=== PATIENT | female | born 1995 | race Caucasian/White ===

== ENCOUNTER 2016-04-23 23:36 | Emergency (ER) | payer SELFPAY ==
--- NOTE | 2016-04-24 00:08 | ED NURSING NOTES ---
Clinical Report - Nurses [facility] [address] [place] [address] 04/23/2016 23:39 Patient: RACHEL DÍAZ TRIAGE Triage time 23:51 Apr 23 2016. Chief Complaint: SWELLING OF JAW / FACE. --23:53 Saud Elias R.N. 23:51 04/23/16. BP: 108/91. HR: 134. RR: 18. O2 saturation: 97%. Temp: 98.3 F. Pain level now 0/10. --23:53 Saud Elias R.N. Weight: 63.5 kg stated. Height/Length: 66 inches Per Patient. BMI: 22.6. --23:51 Saud Elias R.N. Medications None. --04:16 Saud Elias R.N. Allergies No Known Drug Allergy. --04:16 Saud Elias R.N. History Arrived by private vehicle. Historian: patient. This started yesterday. No fever. 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 SOCIAL HX: Light tobacco smoker. History of IV drug use: heroin. No alcohol use. --23:53 Saud Elias R.N. PHYSICAL ASSESSMENT 23:56 04/23/16. GENERAL / NEURO / PSYCH: Alert. Oriented X 4. Appears in no acute distress. HEENT: Pupils equal, round and reactive to light. Dental tenderness of multiple teeth. Dental decay. RESPIRATORY: Respirations not labored. SKIN: Skin is warm and dry. --23:56 Saud Elias R.N. NURSING PROGRESS NOTES 00:12 04/24/2016 Amoxicillin PO 500 mg given. Allergies verified and confirmed 5 rights. --00:13 Saud Elias R.N. DISPOSITION / DISCHARGE 00:15 04/24/16. BP: 113/72. HR: 120. RR: 18. O2 saturation: 100%. Temp: 98.5 F. Pain level now 0/10. --00:16 Saud Elias R.N. Departure time: 00:18 Apr 24 2016. --00:18 Saud Elias R.N. Reviewed medication(s). Treatments reviewed. Patient verbalized understanding. Written instructions provided in Polish. The patient was discharged by the physician. She was discharged home. ( Pt ambulated on discharge, verbalized understanding of discharge instructions and follow up care as well as medication admin.). --00:24 Saud Elias R.N. Locked/Released at 04/24/2016 4:17 by Saud Elias R.N.
--- NOTE | 2016-04-24 00:08 | ED CLINICAL REPORT ---
Clinical Report - Physicians/Mid Levels [facility] [address] [place] [address] 04/23/2016 23:39 Patient: RACHEL DÍAZ Time Seen: 23:55. Arrived- By private vehicle. Historian- patient. HISTORY OF PRESENT ILLNESS Chief Complaint: DENTAL PAIN. This started several days ago and is still present. Pain described as moderate. No sore throat, mouth sores, nasal discharge or congestion or ear pain. She has had toothache, swelling of the face and facial pain. Similar symptoms previously: Recent medical care: Not recently seen/assessed. REVIEW OF SYSTEMS No fever, eye discomfort, cough, difficulty breathing or chest pain. No nausea, diarrhea, abdominal pain, difficulty with urination or headache. No fainting episodes, joint pain, skin rash, enlarged lymph nodes or vomiting. Denies current . All systems otherwise negative, except as recorded above. PAST HISTORY Problems: Dysfunctional Uterine Bleeding. Immunizations. Additional Surgeries: no known surgeries. Medications: None. Allergies: No Known Drug Allergy. SOCIAL HISTORY Smoker- current status unknown. History of drug use: heroin. No alcohol use. ADDITIONAL NOTES The nursing notes have been reviewed. PHYSICAL EXAM Vital Signs: 04/23/2016 23:51 BP: 108/91. HR: 134. RR: 18. O2 saturation: 97%. Temp: 98.3 F. Have been reviewed. Appearance: Alert. No acute distress. Head: Moderate swelling of the right maxilla. No facial erythema. Eyes: Pupils equal, round and reactive to light. Conjunctivae and eyelids normal. ENT: Nose normal. Pharynx normal. Lips normal. No trismus present. Uvula midline. (R maxillary gingiva are erythematous, with a fluctuant, draining abscess in the buccal pocket. Purulent drainage is easily expressible from the area.). Neck: Normal inspection. Trachea midline. No adenopathy. Neck supple. CVS: Normal heart rate and rhythm. Heart sounds normal. Pulses normal. Respiratory: No respiratory distress. Breath sounds normal. Skin: Normal skin color. No rash. Normal skin turgor. Extremities: Extremities exhibit normal ROM. Extremities nontender. Neuro: Oriented X 3. No motor deficit. No sensory deficit. LABS, X-RAYS, AND EKG Pulse Oximetry: 04/23/2016 23:51 O2 saturation: 97%. (FIO2 - room air). Interpretation: normal. PROGRESS AND PROCEDURES Course of Care: Pt had a freely draining dental abscess, and was started on amoxicillin. We did discuss hot packing with tea bags, and the importance of following up with a dentist as soon as possible. Patient counseled in person regarding the patient's stable condition, test results, diagnosis and need for follow-up. Concerns were addressed. Old medical records reviewed. Disposition: Discharged. Condition: stable. CLINICAL IMPRESSION Periapical dental abscess with sinus tract. INSTRUCTIONS Drink plenty of fluids. Warnings: GENERAL WARNINGS: Return or contact your physician immediately if your condition worsens or changes unexpectedly, if not improving as expected, or if other problems arise. Prescription Medications: Amoxicillin 500 mg tablets: take 1 orally every 8 hours for 10 days. No refills. Follow-up: Follow up with a dentist. Call for the next available appointment. Understanding of the discharge instructions verbalized by patient. (Electronically signed by Shannan Ng MD 04/30/2016 19:28)
--- NOTE | 2016-04-24 00:08 | ED ORDER SUMMARY ---
..... Patient: RACHEL DÍAZ OrderSheet [facility] VisitID: [id number] [place] [address] 20y, F Registration Date/Time: 04/23/2016 ORDER SHEET Weight: 63.5 kg (stated) Allergies: No Known Drug Allergy GENERAL ORDERS: MEDICATION ORDERS: Amoxicillin PO 500 mg (NOW) (00:06 04/24/2016 Jodi MEJIA) (0:13 Lisa R.NSean) IV FLUIDS: ORDER SHEET NOTES: [Electronically signed by Saud Elias R.N. (04:17 04/24/2016)] [Electronically signed by Shannan Ng MD (19:28 04/30/2016)] [Electronically locked/signed by Saud Elias R.N. (04:17 04/24/2016)]
--- NOTE | 2016-04-24 00:08 | ED ORDER SUMMARY ---
..... Patient: RACHEL DÍAZ OrderSheet [facility] VisitID: [id number] [place] [address] 20y, F Registration Date/Time: 04/23/2016 ORDER SHEET Weight: 63.5 kg (stated) Allergies: No Known Drug Allergy GENERAL ORDERS: MEDICATION ORDERS: Amoxicillin PO 500 mg (NOW) (00:06 04/24/2016 Jodi MEJIA) (0:13 Lisa R.NSean) IV FLUIDS: ORDER SHEET NOTES: [Electronically signed by Saud Elias R.N. (04:17 04/24/2016)] [Electronically signed by Shannan Ng MD (19:28 04/30/2016)] [Electronically locked/signed by Saud Elias R.N. (04:17 04/24/2016)]
--- NOTE | 2016-04-24 00:08 | ED CLINICAL REPORT ---
Clinical Report - Physicians/Mid Levels [facility] [address] [place] [address] 04/23/2016 23:39 Patient: RACHEL DÍAZ Time Seen: 23:55. Arrived- By private vehicle. Historian- patient. HISTORY OF PRESENT ILLNESS Chief Complaint: DENTAL PAIN. This started several days ago and is still present. Pain described as moderate. No sore throat, mouth sores, nasal discharge or congestion or ear pain. She has had toothache, swelling of the face and facial pain. Similar symptoms previously: Recent medical care: Not recently seen/assessed. REVIEW OF SYSTEMS No fever, eye discomfort, cough, difficulty breathing or chest pain. No nausea, diarrhea, abdominal pain, difficulty with urination or headache. No fainting episodes, joint pain, skin rash, enlarged lymph nodes or vomiting. Denies current . All systems otherwise negative, except as recorded above. PAST HISTORY Problems: Dysfunctional Uterine Bleeding. Immunizations. Additional Surgeries: no known surgeries. Medications: None. Allergies: No Known Drug Allergy. SOCIAL HISTORY Smoker- current status unknown. History of drug use: heroin. No alcohol use. ADDITIONAL NOTES The nursing notes have been reviewed. PHYSICAL EXAM Vital Signs: 04/23/2016 23:51 BP: 108/91. HR: 134. RR: 18. O2 saturation: 97%. Temp: 98.3 F. Have been reviewed. Appearance: Alert. No acute distress. Head: Moderate swelling of the right maxilla. No facial erythema. Eyes: Pupils equal, round and reactive to light. Conjunctivae and eyelids normal. ENT: Nose normal. Pharynx normal. Lips normal. No trismus present. Uvula midline. (R maxillary gingiva are erythematous, with a fluctuant, draining abscess in the buccal pocket. Purulent drainage is easily expressible from the area.). Neck: Normal inspection. Trachea midline. No adenopathy. Neck supple. CVS: Normal heart rate and rhythm. Heart sounds normal. Pulses normal. Respiratory: No respiratory distress. Breath sounds normal. Skin: Normal skin color. No rash. Normal skin turgor. Extremities: Extremities exhibit normal ROM. Extremities nontender. Neuro: Oriented X 3. No motor deficit. No sensory deficit. LABS, X-RAYS, AND EKG Pulse Oximetry: 04/23/2016 23:51 O2 saturation: 97%. (FIO2 - room air). Interpretation: normal. PROGRESS AND PROCEDURES Course of Care: Pt had a freely draining dental abscess, and was started on amoxicillin. We did discuss hot packing with tea bags, and the importance of following up with a dentist as soon as possible. Patient counseled in person regarding the patient's stable condition, test results, diagnosis and need for follow-up. Concerns were addressed. Old medical records reviewed. Disposition: Discharged. Condition: stable. CLINICAL IMPRESSION Periapical dental abscess with sinus tract. INSTRUCTIONS Drink plenty of fluids. Warnings: GENERAL WARNINGS: Return or contact your physician immediately if your condition worsens or changes unexpectedly, if not improving as expected, or if other problems arise. Prescription Medications: Amoxicillin 500 mg tablets: take 1 orally every 8 hours for 10 days. No refills. Follow-up: Follow up with a dentist. Call for the next available appointment. Understanding of the discharge instructions verbalized by patient. (Electronically signed by Shannan Ng MD 04/30/2016 19:28)
--- NOTE | 2016-04-24 00:08 | ED NURSING NOTES ---
Clinical Report - Nurses [facility] [address] [place] [address] 04/23/2016 23:39 Patient: RACHEL DÍAZ TRIAGE Triage time 23:51 Apr 23 2016. Chief Complaint: SWELLING OF JAW / FACE. --23:53 Saud Elias R.N. 23:51 04/23/16. BP: 108/91. HR: 134. RR: 18. O2 saturation: 97%. Temp: 98.3 F. Pain level now 0/10. --23:53 Saud Elias R.N. Weight: 63.5 kg stated. Height/Length: 66 inches Per Patient. BMI: 22.6. --23:51 Saud Elias R.N. Medications None. --04:16 Saud Elias R.N. Allergies No Known Drug Allergy. --04:16 Saud Elias R.N. History Arrived by private vehicle. Historian: patient. This started yesterday. No fever. 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 SOCIAL HX: Light tobacco smoker. History of IV drug use: heroin. No alcohol use. --23:53 Saud Elias R.N. PHYSICAL ASSESSMENT 23:56 04/23/16. GENERAL / NEURO / PSYCH: Alert. Oriented X 4. Appears in no acute distress. HEENT: Pupils equal, round and reactive to light. Dental tenderness of multiple teeth. Dental decay. RESPIRATORY: Respirations not labored. SKIN: Skin is warm and dry. --23:56 Saud Elias R.N. NURSING PROGRESS NOTES 00:12 04/24/2016 Amoxicillin PO 500 mg given. Allergies verified and confirmed 5 rights. --00:13 Saud Elias R.N. DISPOSITION / DISCHARGE 00:15 04/24/16. BP: 113/72. HR: 120. RR: 18. O2 saturation: 100%. Temp: 98.5 F. Pain level now 0/10. --00:16 Saud Elias R.N. Departure time: 00:18 Apr 24 2016. --00:18 Saud Elias R.N. Reviewed medication(s). Treatments reviewed. Patient verbalized understanding. Written instructions provided in Uzbek. The patient was discharged by the physician. She was discharged home. ( Pt ambulated on discharge, verbalized understanding of discharge instructions and follow up care as well as medication admin.). --00:24 Saud Elias R.N. Locked/Released at 04/24/2016 4:17 by Saud Elias R.N.
--- NOTE | 2016-04-30 19:28 | ED MAR SUMMARY ---
..... Medication Administration Record [facility] [address] [place] [address] Patient: RACHEL DÍAZ Visit ID: [id number] 20y, F Weight: 63.5 kg Height/Length: 66 in BMI: 22.6 ALLERGIES: No Known Drug Allergy Given 00:12 04/24/2016 Saud Elias R.N. Medication Administered: AMOXICILLIN [PO], Dose: 500 mg PO. Medication Ordered: Amoxicillin PO 500 mg (NOW).
--- NOTE | 2016-04-30 19:28 | ED DISCHARGE INSTRUCTIONS ---
Patient: RACHEL DÍAZ General Instructions [facility] VisitID: [id number] [place] [address] 20y, F Registration Date/Time: 04/23/2016 Periapical dental abscess with sinus tract. INSTRUCTIONS Drink plenty of fluids. Warnings: GENERAL WARNINGS: Return or contact your physician immediately if your condition worsens or changes unexpectedly, if not improving as expected, or if other problems arise. Prescription Medications: Amoxicillin 500 mg tablets: take 1 orally every 8 hours for 10 days. No refills. Follow-up: Follow up with a dentist. Call for the next available appointment. Understanding of the discharge instructions verbalized by patient. ADDITIONAL INFORMATION Dental Abscess A dental abscess is an infection of the tooth socket. It often starts with a crack or cavity in the tooth. A pocket of pus forms between the tooth and the bone. The infection causes pain and swelling of the gum, cheek or jaw. The pain is often made worse by drinking hot or cold fluids, or biting on hard foods. Pain may be felt in the facial sinus or in the ear. A severe infection can interfere with swallowing and breathing. In the emergency department or clinic, you will be started on an antibiotic. However, final treatment requires drainage of the pus. This can be done by removing the tooth or performing a root canal. A root canal is done by an oral surgeon and involves drilling an opening in the tooth to drain the pus. After the infection has healed, a crown is placed over the tooth. Home care The following guidelines will help you care for your abscess at home: Avoid hot and cold foods and liquids since your tooth may be sensitive to temperature changes. If your tooth is chipped or cracked, or if there is a large open cavity, applyoil of cloves(available svgo-qau-vjyfkpt in drug stores) directly to the tooth to reduce pain. Some pharmacies carry an cbqq-lmv-nzdfayt "toothache kit". This contains oil of cloves and a paste, which can be applied over the exposed tooth to decrease sensitivity. Apply an ice pack (ice cubes in a plastic bag, wrapped in a towel) over the injured area for 20 minutes every 12 hours the first day for pain relief. Continue this 34 times a day until the pain and swelling goes away. You may use acetaminophen or ibuprofen to control pain, unless another medicine was prescribed. If you have chronic liver or kidney disease or ever had a stomach ulcer or GI bleeding, talk with your doctor before using these medicines. An antibiotic will be prescribed. Take it as directed until completed, even if you are feeling better sooner. Follow-up care Follow up as directed with a dentist or oral surgeon. Even though your pain may improve with the treatment given today, only a dentist or oral surgeon can provide full treatment for this problem. When to seek medical care Get prompt medical attention or contact your doctor if any of the following occur: Your face or eyelid becomes swollen or red Pain worsens or spreads to the neck Fever over 100.4F (38.0C) Unusual drowsiness; headache or stiff neck; weakness, or fainting Pus drains from the gum or tooth Difficulty talking, swallowing or breathing Unable to open your mouth wide You have been given the following additional information: Tooth Abscess (Electronically signed by Shannan Ng MD 04/30/2016 19:28)
--- NOTE | 2016-04-30 19:28 | ED MED RECONCILIATION SUMMARY ---
Patient: RACHEL DÍAZ Medication Reconciliation Report [facility] VisitID: [id number] [place] [address] 20y, F Registration Date/Time: 04/23/2016 Weight: 63.5 kg Height/Length: 66 in. BMI: 22.6 ALLERGIES: No Known Drug Allergy The patient's Home Medications are listed below: NONE. The source(s) of the original Home Medication information: Not obtained. The following Medications were given to the patient in the Emergency Department: Amoxicillin [PO] PO 500 mg, administered: 04/24/2016 12:12:00 AM The following Medications were prescribed to the patient: Amoxicillin 500 mg tablets: take 1 orally every 8 hours for 10 days. No refills. -- Shannan Ng MD
--- NOTE | 2016-04-30 19:28 | ED MED RECONCILIATION SUMMARY ---
Patient: RACHEL DÍAZ Medication Reconciliation Report [facility] VisitID: [id number] [place] [address] 20y, F Registration Date/Time: 04/23/2016 Weight: 63.5 kg Height/Length: 66 in. BMI: 22.6 ALLERGIES: No Known Drug Allergy The patient's Home Medications are listed below: NONE. The source(s) of the original Home Medication information: Not obtained. The following Medications were given to the patient in the Emergency Department: Amoxicillin [PO] PO 500 mg, administered: 04/24/2016 12:12:00 AM The following Medications were prescribed to the patient: Amoxicillin 500 mg tablets: take 1 orally every 8 hours for 10 days. No refills. -- Shannan Ng MD
--- NOTE | 2016-04-30 19:28 | ED DISCHARGE INSTRUCTIONS ---
Patient: RACHEL DÍAZ General Instructions [facility] VisitID: [id number] [place] [address] 20y, F Registration Date/Time: 04/23/2016 Periapical dental abscess with sinus tract. INSTRUCTIONS Drink plenty of fluids. Warnings: GENERAL WARNINGS: Return or contact your physician immediately if your condition worsens or changes unexpectedly, if not improving as expected, or if other problems arise. Prescription Medications: Amoxicillin 500 mg tablets: take 1 orally every 8 hours for 10 days. No refills. Follow-up: Follow up with a dentist. Call for the next available appointment. Understanding of the discharge instructions verbalized by patient. ADDITIONAL INFORMATION Dental Abscess A dental abscess is an infection of the tooth socket. It often starts with a crack or cavity in the tooth. A pocket of pus forms between the tooth and the bone. The infection causes pain and swelling of the gum, cheek or jaw. The pain is often made worse by drinking hot or cold fluids, or biting on hard foods. Pain may be felt in the facial sinus or in the ear. A severe infection can interfere with swallowing and breathing. In the emergency department or clinic, you will be started on an antibiotic. However, final treatment requires drainage of the pus. This can be done by removing the tooth or performing a root canal. A root canal is done by an oral surgeon and involves drilling an opening in the tooth to drain the pus. After the infection has healed, a crown is placed over the tooth. Home care The following guidelines will help you care for your abscess at home: Avoid hot and cold foods and liquids since your tooth may be sensitive to temperature changes. If your tooth is chipped or cracked, or if there is a large open cavity, applyoil of cloves(available rhwk-xyg-tiblpdt in drug stores) directly to the tooth to reduce pain. Some pharmacies carry an uefj-zkc-lvyigyj "toothache kit". This contains oil of cloves and a paste, which can be applied over the exposed tooth to decrease sensitivity. Apply an ice pack (ice cubes in a plastic bag, wrapped in a towel) over the injured area for 20 minutes every 12 hours the first day for pain relief. Continue this 34 times a day until the pain and swelling goes away. You may use acetaminophen or ibuprofen to control pain, unless another medicine was prescribed. If you have chronic liver or kidney disease or ever had a stomach ulcer or GI bleeding, talk with your doctor before using these medicines. An antibiotic will be prescribed. Take it as directed until completed, even if you are feeling better sooner. Follow-up care Follow up as directed with a dentist or oral surgeon. Even though your pain may improve with the treatment given today, only a dentist or oral surgeon can provide full treatment for this problem. When to seek medical care Get prompt medical attention or contact your doctor if any of the following occur: Your face or eyelid becomes swollen or red Pain worsens or spreads to the neck Fever over 100.4F (38.0C) Unusual drowsiness; headache or stiff neck; weakness, or fainting Pus drains from the gum or tooth Difficulty talking, swallowing or breathing Unable to open your mouth wide You have been given the following additional information: Tooth Abscess (Electronically signed by Shannan Ng MD 04/30/2016 19:28)
--- NOTE | 2016-04-30 19:28 | ED MAR SUMMARY ---
..... Medication Administration Record [facility] [address] [place] [address] Patient: RACHEL DÍAZ Visit ID: [id number] 20y, F Weight: 63.5 kg Height/Length: 66 in BMI: 22.6 ALLERGIES: No Known Drug Allergy Given 00:12 04/24/2016 Saud Elias R.N. Medication Administered: AMOXICILLIN [PO], Dose: 500 mg PO. Medication Ordered: Amoxicillin PO 500 mg (NOW).
== END 2016-04-24 00:24 | disposition home or self-care (01) ==
LOC: ED SRH 23:36
DX: K04.6 Periapical abscess with sinus (principal)